=== PATIENT | male | born 1950 | race Caucasian/White ===

== ENCOUNTER 2017-02-24 01:14 | Emergency (ER) | payer BC, OTHER ==
[~2017-02-24] VITALS: Ht 170.2 cm; Wt 88.5 kg
[~2017-02-24 01:14] MED LIST: ATEN50TA PO; HYDR25TA4 PO; LISI-209 PO; [UNRECOGNIZED DRUG - CODE] PO
[2017-02-24 01:20] VITALS: BP_SYST 194
--- NOTE | 2017-02-24 01:20 | NUR ---
Patient to ER bed 8, to await MD evaluation.
--- NOTE | 2017-02-24 01:30 | NUR ---
Patient to ED for evaluation of lower back pain which radiates down his left leg. Patient reports pain has been ongoing since 0800 on 02/21/17. Patient reports pain is unrelieved. Patient able to ambulate to bed 8 with slow, steady gait. at bedside, awaiting evaluation by ER MD-will continue to observe and assess.
--- NOTE | 2017-02-24 01:35 | NUR ---
Dr Boles at bedside to evaluate patient.
[2017-02-24] MEDS ORDERED: IBUPROFEN 800 MG TABLET PO ONE (02:00)
[2017-02-24] MEDS ORDERED: KETOROLAC TROMETHAMINE 60 MG/2 ML VIAL IM ONE (02:00)
--- NOTE | 2017-02-24 02:04 | NUR ---
Patient medicated as ordered, patient tolerated well.
[2017-02-24 02:11] VITALS: BP_SYST 169
--- NOTE | 2017-02-24 02:40 | NUR ---
Patient given written and verbal discharge instructions and verbalizes understanding. ER MD discussed with patient the results and treatment provided. Patient in stable condition. ID arm band removed. IV catheter removed intact and dressing applied, no active bleeding. Rx of Motrin given. Patient educated on pain management and to follow up with PMD. Pain Scale 5. Opportunity for questions provided and answered.
== END 2017-02-24 02:40 | disposition home or self-care (01) ==
LOC: SED 01:14
DX: M79.662 Pain in left lower leg (principal); Z85.46 Personal history of malignant neoplasm of prostate
CPT/HCPCS: 96372; 99283; J1885

== ENCOUNTER 2017-11-19 07:43 | Inpatient (IN) | payer BC, OTHER ==
[~2017-11-19] VITALS: Ht 170.2 cm; Wt 90.7 kg
[2017-11-19 07:45] VITALS: BP_SYST 167
[2017-11-19] MEDS ORDERED: NACL 0.9% 1,000 ML IV ONE (08:09)
[2017-11-19] MEDS ORDERED: ASPIRIN 81 MG TAB.CHEW PO ONE (08:15)
[2017-11-19] MEDS ORDERED: cloNIDine HCL 0.1 MG TABLET PO ONE (08:15)
[2017-11-19] MEDS ORDERED: NITROGLYCERIN 0.4 MG TAB.SUBL SL ONE ×2 (08:30→12:00)
[2017-11-19 08:31] LABS: BILIRUBIN,URINE NEGATIVE (NEGATIVE); CLARITY/URINE CLEAR (CLEAR); COLOR,URINE YELLOW (YELLOW); GLUCOSE,URINE NEGATIVE (NEGATIVE); KETONES,URINE NEGATIVE (NEGATIVE); LEUKOCYTE ESTERASE ,URINE NEGATIVE (NEGATIVE); NITRITE, URINE NEGATIVE (NEGATIVE); PH,URINE 5.5 (5.0-8.0); PROTEIN URINE NEGATIVE (NEGATIVE); UROBILINOGEN,URINE 0.2 (0.2-1.0)
[2017-11-19 08:43] LABS: BLOOD, URINE TRACE (NEGATIVE)
[2017-11-19 08:44] LABS: BASOPHILS % (AUTO) 0.4 % (0.0-2.0); EOSINOPHILS # (AUTO) 0.1 K/uL (0.0-0.4); EOSINOPHILS % (AUTO) 0.7 % (0.0-4.0); HEMOGLOBIN 17.6 g/dL (14.0-18.0); LYMPHOCYTES # (AUTO) 1.3 K/uL (1.0-5.5); LYMPHOCYTES % (AUTO) 15.3 % (20.5-51.5); MEAN CORPUSCULAR HEMOGLOBIN 33 pg (27-31); MEAN CORPUSCULAR HGB CONC 35 % (32-36); MEAN CORPUSCULAR VOLUME 95 fL (79.0-98.0); MONOCYTES # (AUTO) 0.5 K/uL (0.0-1.0); MONOCYTES % (AUTO) 6.3 % (1.7-9.3); NEUTROPHILS # (AUTO) 6.8 K/uL (1.8-7.7); NEUTROPHILS % (AUTO) 77.3 % (40.0-70.0); PLATELET COUNT (AUTO) 181 K/uL (130-430); RED BLOOD CELL COUNT(AUTO) 5.35 MIL/uL (4.2-6.2); RED CELL DISTRIBUTION WIDTH 12.3 % (9.0-15.0); WHITE BLOOD COUNT (AUTO) 8.7 K/uL (4.8-10.8)
[2017-11-19 08:48] LABS: BACTERIA,URINE FEW /HPF (None Seen); MUCUS,URINE 1+ /LPF (None Seen); RBC,URINE 0-3 /HPF (0-3); WBC,URINE 0-3 /HPF (0-3)
[2017-11-19 08:58] LABS: CREATININE 1.15 mg/dL (0.55-1.30); POTASSIUM 3.7 mmol/L (3.5-5.1)
[2017-11-19 09:01] LABS: INR 1.1 (0.80-1.20); PROTHROMBIN TIME 10.7 SECS (9.5-12.5)
[2017-11-19 09:03] LABS: TOTAL BILIRUBIN 1.4 mg/dL (0.0-1.0)
[2017-11-19] MEDS ORDERED: ASA81 PO (09:32)
[2017-11-19] MEDS ORDERED: [UNRECOGNIZED DRUG - CODE] PO (09:32)
[2017-11-19 12:15] VITALS: BP_SYST 145
[2017-11-19 12:22] VITALS: BP_SYST 145
[2017-11-19] MEDS ORDERED: cloNIDine HCL 0.1 MG TABLET PO PRN (13:30)
[2017-11-19] MEDS ORDERED: valACYclovir HCL 500 MG TABLET PO SCH (15:00)
[2017-11-19 15:14] VITALS: BP_SYST 133
[2017-11-19] MEDS ORDERED: ACETAMINOPHEN 325 MG TABLET PO PRN (17:15)
[2017-11-19] MEDS ORDERED: CLON1TAB4 PO ×2 (19:35→20:04)
[2017-11-19] MEDS ORDERED: ATEN-41 PO ×2 (19:40→20:04)
[2017-11-19 19:45] VITALS: BP_SYST 144
[2017-11-19] MEDS ORDERED: clonazePAM 0.5 MG TABLET PO SCH (21:00)
[2017-11-19] MEDS ORDERED: ATENOLOL 25 MG TABLET(TENORMIN) PO SCH (21:00)
[2017-11-19] MEDS: valACYclovir HCL 500 MG TABLET PO SCH (21:44)
[2017-11-20 00:54] VITALS: BP_SYST 139
[2017-11-20 04:11] VITALS: BP_SYST 149
[2017-11-20 06:15] LABS: BASOPHILS # (AUTO) 0.1 K/uL (0.0-0.2); EOSINOPHILS # (AUTO) 0.1 K/uL (0.0-0.4); EOSINOPHILS % (AUTO) 1.9 % (0.0-4.0); HEMATOCRIT 49.6 % (36-54); HEMOGLOBIN 16.8 g/dL (14.0-18.0); LYMPHOCYTES # (AUTO) 1.6 K/uL (1.0-5.5); LYMPHOCYTES % (AUTO) 21.1 % (20.5-51.5); MEAN CORPUSCULAR HEMOGLOBIN 33 pg (27-31); MEAN CORPUSCULAR HGB CONC 34 % (32-36); MEAN CORPUSCULAR VOLUME 97 fL (79.0-98.0); MONOCYTES # (AUTO) 0.6 K/uL (0.0-1.0); MONOCYTES % (AUTO) 8.3 % (1.7-9.3); NEUTROPHILS # (AUTO) 5.2 K/uL (1.8-7.7); NEUTROPHILS % (AUTO) 67.7 % (40.0-70.0); PLATELET COUNT (AUTO) 150 K/uL (130-430); RED CELL DISTRIBUTION WIDTH 12.7 % (9.0-15.0); WHITE BLOOD COUNT (AUTO) 7.6 K/uL (4.8-10.8)
[2017-11-20 06:57] LABS: ANION GAP 8 (5-15); CALCIUM 8.5 mg/dL (8.4-11.0); CHLORIDE 109 mmol/L (98-107); CREATININE 1.24 mg/dL (0.55-1.30); GLUCOSE 94 mg/dL (70-99); POTASSIUM 3.9 mmol/L (3.5-5.1); SODIUM SERUM 145 mmol/L (136-145); UREA NITROGEN, BLOOD 20 mg/dL (8-21)
[2017-11-20 07:06] LABS: ALANINE AMINOTRANSFERASE 25 U/L (12-78); ALBUMIN 3.5 g/dL (3.4-4.8); ASPARTATE AMINOTRANSFERASE 15 U/L (10-37)
[2017-11-20 07:14] LABS: GFR AFRICAN AMERICAN 75 mL/min (>90)
[2017-11-20 08:00] VITALS: BP_SYST 161
[2017-11-20] MEDS: valACYclovir HCL 500 MG TABLET PO SCH (08:45)
[2017-11-20] MEDS ORDERED: ASPIRIN 81 MG TAB.CHEW PO SCH (09:00)
[2017-11-20] MEDS ORDERED: ATENOLOL 50 MG TABLET (TENORMIN) PO SCH (09:00)
[2017-11-20] MEDS ORDERED: ASPIRIN 81 MG TABLET(ECOTRIN) PO SCH (09:00)
[2017-11-20] MEDS ORDERED: amLODIPine BESYLATE 5 MG TABLET PO ONE (09:15)
[2017-11-20 10:08] VITALS: BP_SYST 152
[2017-11-20] MEDS ORDERED: AMLO5TAB4 PO (10:18)
[2017-11-20 10:31] VITALS: BP_SYST 142
[2017-11-20 11:41] VITALS: BP_SYST 142
[2017-11-20] MEDS ORDERED: clonazePAM 0.5 MG TABLET PO SCH (21:00)
[2017-11-20] MEDS ORDERED: ATENOLOL 25 MG TABLET(TENORMIN) PO SCH (21:00)
== END 2017-11-20 12:40 | disposition home or self-care (01) | DRG 313 ==
LOC: SED 07:43 → STU 11:51
PROVIDERS: ADMIT Internal Medicine Hospice and Palliative Medicine; ATTEND Internal Medicine Hospice and Palliative Medicine
DX: R07.89 Other chest pain (principal); I10 Essential (primary) hypertension; G51.0 Bell's palsy; I25.10 Atherosclerotic heart disease of native coronary artery without angina pectoris; E78.00 Pure hypercholesterolemia, unspecified; Z85.46 Personal history of malignant neoplasm of prostate; I25.2 Old myocardial infarction; Z79.82 Long term (current) use of aspirin; Z79.899 Other long term (current) drug therapy; Z82.49 Family history of ischemic heart disease and other diseases of the circulatory system
CPT/HCPCS: 36415; 71045; 80053; 81000-TC; 82550-TC; 83690-TC; 84484; 85025; 85610-TC; 85730-TC; 93306

== ENCOUNTER 2020-03-08 14:14 | Emergency (ER) | payer BC, OTHER ==
[~2020-03-08] VITALS: Ht 170.2 cm; Wt 95.3 kg
[~2020-03-08 14:14] MED LIST changes: +AMLO5TAB4 PO; +ASA81 PO; +ATEN-41 PO; +CLON1TAB12 PO; -HYDR25TA4 PO; -LISI-209 PO; +VALA10002 PO; -[UNRECOGNIZED DRUG - CODE] PO
[2020-03-08 14:18] VITALS: BP_SYST 177
[2020-03-08 15:02] LABS: BILIRUBIN,URINE NEGATIVE (NEGATIVE); CLARITY/URINE CLEAR (CLEAR); COLOR,URINE YELLOW (YELLOW); GLUCOSE,URINE NEGATIVE (NEGATIVE); KETONES,URINE NEGATIVE (NEGATIVE); LEUKOCYTE ESTERASE ,URINE NEGATIVE (NEGATIVE); NITRITE, URINE NEGATIVE (NEGATIVE); PROTEIN URINE NEGATIVE (NEGATIVE); UROBILINOGEN,URINE 0.2 (0.2-1.0)
[2020-03-08 15:12] LABS: BASOPHILS % (AUTO) 0.6 % (0.0-2.0); EOSINOPHILS # (AUTO) 0.2 K/uL (0.0-0.4); EOSINOPHILS % (AUTO) 2.4 % (0.0-4.0); HEMATOCRIT 46.5 % (36-54); HEMOGLOBIN 16.2 g/dL (14.0-18.0); LYMPHOCYTES % (AUTO) 13.6 % (20.5-51.5); MEAN CORPUSCULAR HEMOGLOBIN 33 pg (27-31); MEAN CORPUSCULAR HGB CONC 35 % (32-36); MEAN CORPUSCULAR VOLUME 94 fL (79.0-98.0); MONOCYTES # (AUTO) 0.6 K/uL (0.0-1.0); MONOCYTES % (AUTO) 7.4 % (1.7-9.3); NEUTROPHILS # (AUTO) 5.7 K/uL (1.8-7.7); PLATELET COUNT (AUTO) 170 K/uL (130-430); RED BLOOD CELL COUNT(AUTO) 4.96 MIL/uL (4.2-6.2); RED CELL DISTRIBUTION WIDTH 13.6 % (9.0-15.0); WHITE BLOOD COUNT (AUTO) 7.5 K/uL (4.8-10.8)
[2020-03-08 15:13] LABS: BLOOD, URINE TRACE (NEGATIVE)
[2020-03-08 15:17] LABS: CALCIUM 8.6 mg/dL (8.4-11.0); CREATININE 1.28 mg/dL (0.55-1.30); POTASSIUM 4.3 mmol/L (3.5-5.1)
[2020-03-08 15:23] LABS: ALBUMIN 3.7 g/dL (3.4-4.8); TOTAL BILIRUBIN 0.9 mg/dL (0.0-1.0)
[2020-03-08] MEDS ORDERED: KETOROLAC TROMETHAMINE 30 MG VIAL IVP ONE (15:30)
[2020-03-08 15:55] VITALS: BP_SYST 132
[2020-03-08 16:18] LABS: PROTHROMBIN TIME 10.5 SECS (9.5-12.5)
[2020-03-08 16:55] LABS: BACTERIA,URINE RARE /HPF (None Seen); RBC,URINE 0-3 /HPF (0-3); WBC,URINE NONE SEEN /HPF (0-3)
[2020-03-08 16:56] LABS: FINE GRANULAR CASTS,URINE 0-10 /LPF (None Seen); MUCUS,URINE 1+ /LPF (None Seen)
== END 2020-03-08 15:55 | disposition home or self-care (01) ==
LOC: SED 14:14
DX: N20.0 Calculus of kidney (principal)
CPT/HCPCS: 36415; 71045; 74176; 80053; 81000; 83605; 83690; 85025; 85610; 87040; 93005; 96374; 99285; J1885

== ENCOUNTER 2021-11-13 09:46 | Emergency (ER) | payer BC, OTHER ==
[~2021-11-13] VITALS: Ht 170.2 cm; Wt 90.7 kg
--- NOTE | 2021-11-13 09:50 | NUR ---
Patient to ER bed 2 to gown for evaluation. Side rails up. Report given to Nate STROUD.
[2021-11-13 09:51] VITALS: BP_SYST 152
--- NOTE | 2021-11-13 10:35 | NUR ---
Pt present to ED with complaint of L knee pain rated 8/10. Pt denies any trauma to extremity. Aox4 GCS 15
--- NOTE | 2021-11-13 10:42 | NUR ---
Pt seen by ED physician at bedside
[2021-11-13] MEDS ORDERED: HYDR-3917 PO (11:45)
[2021-11-13] MEDS ORDERED: IBUP-1969 PO (11:58)
--- NOTE | 2021-11-13 12:12 | NUR ---
Knee immobilizer and crutches given to pt per ED physician orders. Pt educated and returned demonstration on personal care.
--- NOTE | 2021-11-13 12:14 | NUR ---
Patient given written and verbal discharge instructions and verbalizes understanding. ER MD discussed with patient the results and treatment provided. Patient in stable condition. ID arm band removed.Rx of norco and ibuprofen given. Patient educated on pain management and to follow up with PMD. Pain Scale 0/10. Opportunity for questions provided and answered. Medication side effect fact sheet provided. Pt self ambulated out of ED with crutches.
[2021-11-13 12:15] VITALS: BP_SYST 150
== END 2021-11-13 12:14 | disposition home or self-care (01) ==
LOC: SED 09:46
DX: M25.562 Pain in left knee (principal); Z79.899 Other long term (current) drug therapy
CPT/HCPCS: 73564; 99283

== ENCOUNTER 2022-11-07 13:35 | Emergency (ER) | payer OTHER, BC ==
[~2022-11-07] VITALS: Ht 175.3 cm; Wt 86.2 kg
[~2022-11-07 13:35] MED LIST changes: +HYDR-3917 PO; +IBUP-1969 PO
[2022-11-07 13:46] VITALS: BP_SYST 145
[2022-11-07 14:45] VITALS: BP_SYST 145
[2022-11-07 14:59] LABS: BILIRUBIN,URINE NEGATIVE (NEGATIVE); CLARITY/URINE CLEAR (CLEAR); COLOR,URINE YELLOW (YELLOW); GLUCOSE,URINE NEGATIVE (NEGATIVE); KETONES,URINE NEGATIVE (NEGATIVE); LEUKOCYTE ESTERASE ,URINE NEGATIVE (NEGATIVE); NITRITE, URINE NEGATIVE (NEGATIVE); PROTEIN URINE NEGATIVE (NEGATIVE); UROBILINOGEN,URINE 0.2 (0.2-1.0)
[2022-11-07 15:11] LABS: BLOOD, URINE TRACE (NEGATIVE)
[2022-11-07 15:16] LABS: BACTERIA,URINE None Seen /HPF (None Seen); MUCUS,URINE None Seen /LPF (None Seen); RBC,URINE NONE SEEN /HPF (0-3); WBC,URINE NONE SEEN /HPF (0-3)
== END 2022-11-07 15:11 | disposition home or self-care (01) ==
LOC: SED 13:35
DX: H61.21 Impacted cerumen, right ear (principal); H92.01 Otalgia, right ear; Z79.899 Other long term (current) drug therapy
CPT/HCPCS: 81000; 99283